=== PATIENT | female | born 1970 | race Caucasian/White ===

== ENCOUNTER 2019-02-03 05:42 | Outpatient (CLI) | payer OTHER ==
[~2019-02-03] VITALS: Ht 167 cm; Wt 77.2 kg
[~2019-02-03 05:42] MED LIST: ESOM20SU PO
[2019-02-03] MEDS ORDERED: FERR-84 PO (10:24)
[2019-02-06] MEDS ORDERED: IBUP-1773 PO (07:52)
[2019-02-06] MEDS ORDERED: HYDR-4226 PO (07:52)
== END 2019-02-03 10:32 | disposition home or self-care (01) ==
LOC: PREOP 05:42
PROVIDERS: ATTEND Obstetrics & Gynecology
DX: Z01.818 Encounter for other preprocedural examination (principal)

== ENCOUNTER 2020-09-04 08:10 | Outpatient (RCR) | payer OTHER ==
[~2020-09-04] VITALS: Ht 167.7 cm; Wt 77.0 kg
[~2020-09-04 08:10] MED LIST changes: +FERR-84 PO; +HYDR-4226 PO; +IBUP-1773 PO; +PANT40TA52 PO; +SUCR1TAB PO
== END 2020-09-05 09:00 | disposition home or self-care (01) ==
LOC: PREOP 08:10
PROVIDERS: ATTEND Surgery
DX: Z01.812 Encounter for preprocedural laboratory examination (principal); K21.9 Gastro-esophageal reflux disease without esophagitis; K27.9 Peptic ulcer, site unspecified, unspecified as acute or chronic, without hemorrhage or perforation; Z20.822 Contact with and (suspected) exposure to COVID-19
CPT/HCPCS: 87635

== ENCOUNTER 2020-09-06 10:47 | Day surgery (SDC) | payer OTHER ==
[2020-09-06] VITALS (13 sets, daily range): BP systolic 89–126; BP diastolic 51–79
[~2020-09-06] VITALS: Ht 167.7 cm; Wt 77.0 kg
[2020-09-06] MEDS ORDERED: fentaNYL INJ 100 MCG/2 ML AMP IVP ONE (11:30)
[2020-09-06] MEDS ORDERED: HURRICAINE EXT TUBE (BENZOCAINE) XX PRN (11:30)
[2020-09-06] MEDS ORDERED: LIDOCAINE JELLY 2% 6 ML SYRINGE MM PRN (11:30)
[2020-09-06] MEDS ORDERED: MIDAZOLAM 5 MG/5 ML (VERSED) VIAL IV ONE (11:30)
[2020-09-06] MEDS ORDERED: NS IV 500 ML 500 ML IV PRN (11:30)
[2020-09-06] MEDS ORDERED: NS IV 500 ML 500 ML ONE (11:41)
[2020-09-06] MEDS ORDERED: LIDOCAINE JELLY 2% 6 ML SYRINGE ONE (12:06)
[2020-09-06] MEDS ORDERED: HURRICAINE EXT TUBE (BENZOCAINE) ONE (12:06)
[2020-09-06] MEDS ORDERED: fentaNYL INJ 100 MCG/2 ML AMP ONE ×2 (12:06→12:32)
[2020-09-06] MEDS ORDERED: MIDAZOLAM 5 MG/5 ML (VERSED) VIAL ONE ×2 (12:06→12:32)
--- NOTE | 2020-09-06 12:17 | Conscious Sedation/ASA ---
Conscious Sedation Pre-Proced Time 11:30 ASA Score 2 For ASA 3 and 4: Consider anesthesia and medical clearance. Also, for patients with a history of failed moderate sedation consider anesthesia. Airway Lungs Heart ASA score ASA 1: a normal healthy patient ASA 2: a patient with a mild systemic disease (mid diabetes, controlled hypertension, obesity ASA 3: a patient with a severe systemic disease that limits activity (angina, COPD, prior Myocardial infarction) ASA 4: a patient with an incapacitating disease that is a constant threat to life (CHF, renal failure) ASA 5: a moribund patient not expected to survive 24 hrs. (ruptured aneurysm) ASA 6: a declared brain- patient whose organs are being harvested. For emergent operations, add the letter E after the classification Mallampati Classification Grade 2 Sedation Plan Analgesia, Amnesia, Plan communicated to team members, Discussed options with patient/fam, Discussed risks with patient/fam The patient is an appropriate candidate to undergo the planned procedure, sedation, and anesthesia. The patient immediately re-assessed prior to indication. JESSIE THORNOTN MD September 06, 2020 12:17
--- NOTE | 2020-09-06 12:18 | Progress Note-Pre Operative ---
Pre-Operative Progress Note H&P Reviewed The H&P was reviewed, patient examined and no changes noted. Date Seen by Provider: September 06, 2020 Time Seen by Provider: 11:30 Date H&P Reviewed: September 06, 2020 Time H&P Reviewed: 11:30 Pre-Operative Diagnosis: GERD, dysphagia JESSIE THORNTON MD September 06, 2020 12:18
--- NOTE | 2020-09-06 12:20 | Discharge Inst-Surgical ---
D/C Lap Instructions-NORBERTO Follow Up Appt in 2 weeks Activity as tolerated High Fiber Diet 25g or more per day Avoid Alcohol, Caffeine, Spicy [place] and Acid foods. Drink 64 fluid oz or more of fluids per day. Symptoms to Report: Fever over 101 degree F, Nausea/Vomiting If any problems/questions: Contact your physician or go to Emergency Room JESSIE THORNTON MD September 06, 2020 12:20
[2020-09-06] MEDS ORDERED: HYDROcodone/APAP 5 MG/325 MG (LORTAB) TAB PO PRN (12:30)
[2020-09-06] MEDS ORDERED: morphine INJ 10 MG/ML 1ML (SYR OR VIAL) IVP PRN ×2 (12:30)
[2020-09-06] MEDS ORDERED: ONDANSETRON 4 MG/2 ML (SDV) Z0FRAN IVP PRN (12:30)
[2020-09-06] MEDS ORDERED: ACETAMINOPHEN 325 MG TABLET PO PRN (12:30)
--- NOTE | 2020-09-06 13:17 | Progress Note-Post Operative ---
Post-Operative Progess Note Surgeon (s)/[employer] Mechanic (s) Surgeon JESSIE THORNTON MD [employer]pillar Mechanic: none Pre-Operative Diagnosis GERD, dysphagia Post-Operative Diagnosis reflux esophagitis, mild distal esophageal stricture, intact HH repair, moderate gastritis. Procedure & Operative Findings Date of Procedure 09/06/20 Procedure Performed/Findings EGD with bx and balloon dilatation. Anesthesia Type cs Estimated Blood Loss Estimated blood loss (mL): minimal Specimens/Packing Specimens Removed ge jxn, antrum JESSIE THORNTON MD September 06, 2020 13:17
--- NOTE | 2020-09-06 17:58 | OPERATIVE REPORT ---
DATE OF SERVICE: 09/06/2020 ATTENDING PRIMARY CARE PHYSICIAN: Rubens Marlow MD. PREOPERATIVE DIAGNOSES: Peptic ulcer disease, H. pylori gastritis, and dysphagia. POSTOPERATIVE DIAGNOSES: Reflux esophagitis stage II, mild distal esophageal stricture, intact hiatal hernia repair and fundoplication. Moderate gastritis. No ulcerations. PROCEDURES PERFORMED: EGD with biopsy and balloon dilatation. SURGEON: Jessie Thornton MD. ANESTHESIA: Conscious sedation. ESTIMATED BLOOD LOSS: Minimal. FINDINGS: Reflux esophagitis stage II, mild distal esophageal stricture, intact hiatal hernia repair and fundoplication. Moderate gastritis. No ulcerations. DISPOSITION: The patient tolerated the procedure well. INDICATIONS FOR PROCEDURE: The patient is a 50-year-old female, who had a longstanding history of gastroesophageal reflux disease and is also status post hiatal hernia repair and Andrew fundoplication approximately 6 years ago. She states that in the past several months, she has had worsening symptoms with crampy epigastric pain usually after eating meals as well as loss of appetite. She also feels that red sauces do exacerbate the problem. She did have blood work drawn, which was positive for H. pylori antibody. She also does have issues with dysphagia for certain types of foods, which has worsened over time as well. DESCRIPTION OF PROCEDURE: The patient was brought to the endoscopy suite and laid in the left lateral decubitus position. After adequate IV pain and sedative medications and conscious sedation anesthesia, the mouthpiece was applied. The endoscope was placed in the mouth, visualizing the pharynx and hypopharyngeal region. Vocal cords, epiglottis and vallecula identified and appeared to be normal. The endoscope was then gently abated the esophageal opening and esophagus insufflated. The endoscope was then advanced through the first, second and third portions of esophagus. At the level of the GE junction, a reflux esophagitis stage II identified. There was also a mild distal esophageal stricture identified. The endoscope was then advanced in the stomach and endoscope retroflexed visualizing an intact previous hiatal hernia repair as well as a Andrew fundoplication and no recurrence. There was a moderate severity gastritis and inflammation along the pylorus as well; however, no formal ulcerations. A biopsy was taken of the stomach antrum to rule out H. pylori with visualization of good hemostasis. The endoscope was then advanced through the first and second portion of the duodenum, which appeared normal with no distal obstructions or ulcerations. The endoscope was then slowly withdrawn while taking a second look and suctioning residual air with no additional findings. We then proceeded with balloon dilatation of the distal esophageal stricture and balloon was placed in the stomach and pulled back to the area of stricture. We then proceeded to 2, 4 and then eventually 6 atmospheres of pressure or 20 mm in luminal diameter with moderate resistance and left this in place for 60 seconds. The balloon was then desufflated and removed with visualization of good hemostasis as well as no mucosal tears. The endoscope was then slowly withdrawn while taking a second look and suctioning of residual air with no additional findings. The patient tolerated the procedure well. We will recommend the necessary lifestyle and diet accommodation as well as small and more frequent meals, avoidance of eating at night as well as head elevation while lying supine. 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 We will await the biopsy results of the antrum to confirm eradication of H. pylori bacteria as well. Job ID: [id number] DocumentID: [id number] Dictated Date: 09/06/2020 12:56:57 Manager Business Date: 09/06/2020 17:57:39 Dictated By: JESSIE THORNTON MD
== END 2020-09-06 14:00 | disposition home or self-care (01) ==
LOC: ENDO 10:47
PROVIDERS: ATTEND Surgery
DX: K21.00 Gastro-esophageal reflux disease with esophagitis, without bleeding (principal); K22.2 Esophageal obstruction; K29.50 Unspecified chronic gastritis without bleeding; K27.9 Peptic ulcer, site unspecified, unspecified as acute or chronic, without hemorrhage or perforation; K44.9 Diaphragmatic hernia without obstruction or gangrene; Z79.899 Other long term (current) drug therapy; Z98.890 Other specified postprocedural states; Z86.19 Personal history of other infectious and parasitic diseases; Z20.822 Contact with and (suspected) exposure to COVID-19; Z87.891 Personal history of nicotine dependence; Z83.3 Family history of diabetes mellitus; Z82.49 Family history of ischemic heart disease and other diseases of the circulatory system
CPT/HCPCS: 84703; 88305; 88342

== ENCOUNTER 2021-10-06 09:57 | Outpatient (CLI) | payer OTHER | END 2021-10-06 10:15 | LOC: SLEEP 09:57 | PROVIDERS: ATTEND Otolaryngology Otolaryngology/Facial Plastic Surgery | DX: G47.33 Obstructive sleep apnea (adult) (pediatric) (principal); G47.10 Hypersomnia, unspecified | CPT/HCPCS: G0399 ==

== ENCOUNTER 2021-10-27 05:37 | Outpatient (CLI) | payer OTHER ==
[~2021-10-27] VITALS: Ht 167.7 cm; Wt 81.9 kg
== END 2021-10-30 09:41 | disposition home or self-care (01) ==
LOC: PREOP 05:37
PROVIDERS: ATTEND Obstetrics & Gynecology
DX: Z01.818 Encounter for other preprocedural examination (principal)

== ENCOUNTER 2021-11-03 08:22 | Day surgery (SDC) | payer OTHER ==
[~2021-11-03] VITALS: Ht 167.7 cm; Wt 81.9 kg
[2021-11-03] VITALS (12 sets, daily range): BP systolic 11–135; BP diastolic 48–85
[2021-11-03] MEDS ORDERED: LACTATED RINGERS 1,000 ML IV PRN (09:00)
[2021-11-03] MEDS ORDERED: ONDANSETRON 4 MG/2 ML (SDV) Z0FRAN ONE (09:03)
[2021-11-03] MEDS ORDERED: fentaNYL INJ 100 MCG/2 ML AMP ONE (09:03)
[2021-11-03] MEDS ORDERED: LIDOCAINE PF 2% 5 ML (XYLOCAINE) VIAL ONE (09:03)
[2021-11-03] MEDS ORDERED: proPOfol 200 MG/20 ML (DIPRIVAN) VIAL IV ONE (09:03)
[2021-11-03] MEDS ORDERED: MIDAZOLAM 2 MG/2 ML (VERSED) VIAL ONE (09:03)
[2021-11-03] MEDS ORDERED: SEVOFLURANE (ULTANE) 15 ML INHAL SOLN ONE (09:03)
[2021-11-03 09:26] LABS: BASOPHILS # (AUTO) 0.1 10^3/uL (0.0-0.1); BASOPHILS % (AUTO) 1 % (0-10); EOSINOPHILS # (AUTO) 0.1 10^3/uL (0.0-0.3); EOSINOPHILS % (AUTO) 1 % (0-10); HEMATOCRIT 31 % (35-52); HEMOGLOBIN 8.7 g/dL (11.5-16.0); LYMPHOCYTES # (AUTO) 1.5 10^3/uL (1.0-4.0); LYMPHOCYTES % (AUTO) 26 % (12-44); MEAN CORPUSCULAR HEMOGLOBIN 21 pg (25-34); MEAN CORPUSCULAR HGB CONC 28 g/dL (32-36); MEAN CORPUSCULAR VOLUME 75 fL (80-99); MEAN PLATELET VOLUME 9.3 fL (9.0-12.2); MONOCYTES # (AUTO) 0.3 10^3/uL (0.0-1.0); MONOCYTES % (AUTO) 5 % (0-12); NEUTROPHILS # (AUTO) 3.9 10^3/uL (1.8-7.8); NEUTROPHILS % (AUTO) 67 % (42-75); PLATELET COUNT 341 10^3/uL (130-400); WHITE BLOOD COUNT 5.9 10^3/uL (4.3-11.0)
--- NOTE | 2021-11-03 09:44 | Progress Note-Pre Operative ---
Pre-Operative Progress Note H&P Reviewed The H&P was reviewed, patient examined and no changes noted. Date Seen by Provider: Nov 03, 2021 Time Seen by Provider: :30 Date H&P Reviewed: Nov 03, 2021 Time H&P Reviewed: :30 Pre-Operative Diagnosis: QI JARVIS DO Nov 03, 2021 09:44
[2021-11-03] MEDS ORDERED: D5 LR IV SOLUTION 1,000 ML IV SCH (09:45)
[2021-11-03] MEDS ORDERED: ONDANSETRON 4 MG/2 ML (SDV) Z0FRAN IVP PRN ×2 (09:45→10:30)
[2021-11-03] MEDS ORDERED: HYDROcodone/APAP 5 MG/325 MG (LORTAB) TAB PO PRN (09:45)
[2021-11-03] MEDS ORDERED: KETOROLAC 30 MG/ML VIAL IVP ONE ×2 (09:45→10:30)
--- NOTE | 2021-11-03 09:48 | Discharge Inst-Women's Service ---
Discharge Inst-Women's Serv Depart Medication/Instructions New, Converted or Re-Newed RX: Other (OTC Ibuprophen 600 mg q 6 hrs.) Problems Reviewed?: Yes Consults/Follow Up Additional Follow Up: Yes Orders/Referrals RTC in 7-10 weeks Activity Activity: Activity as Tolerated Driving Instructions: No Driving for 1 Week NO SMOKING: NO SMOKING Nothing Inside Vagina: No Douching, No [place], No Tampons Diet Discharge Diet: No Restrictions Symptoms to Report to : Bleeding Excessive, Pain Increased, Fever Over 101 Degrees F, Vaginal Bleeding Increase, Questions/Concerns For Any Problems or Questions: Contact Your Physician QI LUCAS DO Nov 03, 2021 09:48
[2021-11-03] MEDS ORDERED: BUPIVACAINE 0.25% 30 ML (SENSORCAINE) VIAL ONE (09:53)
--- NOTE | 2021-11-03 10:28 | Anesthesia-General Post-Op ---
General Patient Condition Mental Status/LOC: Same as Preop Cardiovascular: Satisfactory Nausea/Vomiting: Absent Respiratory: Satisfactory Pain: Controlled Complications: Absent Post Op Complications Complications None Follow Up Care/Instructions Patient Instructions None needed. Anesthesia/Patient Condition Patient Condition Patient is doing well, no complaints, stable vital signs, no apparent adverse anesthesia problems. No complications reported per nursing. CARLOS KOEHLER CRNA Nov 03, 2021 10:28
[2021-11-03] MEDS ORDERED: HYDROmorphone 2 MG/ML VIAL (DILAUDID) IV ONE (10:30)
[2021-11-03] MEDS ORDERED: morphine INJ 10 MG/ML 1ML (SYR OR VIAL) IVP ONE (10:30)
[2021-11-03] MEDS ORDERED: MEPERIDINE (DEMEROL) INJ 50 MG/ML IVP ONE (10:30)
--- NOTE | 2021-11-03 20:03 | OPERATIVE REPORT ---
DATE OF SERVICE: PREOPERATIVE DIAGNOSIS: A 51-year-old female with abnormal uterine bleeding. POSTOPERATIVE DIAGNOSIS: A 51-year-old female with abnormal uterine bleeding. PROCEDURE: D and C. SURGEON: Qi Lucas DO ANESTHESIA: LMA general. ESTIMATED BLOOD LOSS: Minimal. URINE OUTPUT: 80 mL drained at the start of the procedure. FLUIDS: 800 mL of lactated Ringer's solution. FINDINGS: Grossly normal appearing external female genitalia. SPECIMEN SENT: Endometrial curettings. INDICATIONS FOR PROCEDURE: This 51-year-old female is a patient who had sought care in my office. She required endometrial sampling. We discussed both endometrial biopsy in the office versus D and C. The patient opted to proceed with D and C for the potential of curative measures. Risks of procedure were discussed with the patient in detail including risk of bleeding, infection, risk from anesthesia. After all of her questions were answered, consent was obtained in the preoperative area and the patient was taken to the operating room. OPERATIVE REPORT IN DETAIL: Once in the operating room, general anesthesia was found to be adequate, placed in dorsal lithotomy position, prepped and draped in normal sterile fashion. Timeout was performed. The bladder is drained using straight catheterization. A weighted speculum inserted to the patient's vagina. Right angle retractor was used to visualize the cervix, which was grasped at 12 o'clock position using a long Allis clamp. I then performed paracervical block at 3 and 9 o'clock positions on the cervix. Care was taken to aspirate for injecting, 5 mL of 0.25% Marcaine are injected into each site. I then gently sound the uterine cavity, was found to be 8 cm. I then gently dilated the cervix using Hanks dilators to maximum dilatation approximately 1 cm, at which point I performed a gentle curettage using a medium size endometrial curette. Collect all this tissue as endometrial curettings. Methodically clear all the herron of the endometrium as best as I can and collect all this tissue. After that, there was no active bleeding noted from the cervix. All instruments were removed from the patient's vagina. The patient tolerated the procedure well and sent to recovery area in stable condition. Lap and sponge counts were correct at the end of the procedure. Instrument counts correct as well. Job ID: [id number] DocumentID: [id number] Dictated Date: 11/03/2021 10:21:52 Equipment Service Lead Date: 11/03/2021 20:02:40 Dictated By: QI LUCAS DO
--- NOTE | 2021-11-13 08:19 | History & Physical-Surgical ---
HPO-Surgical History of Present Illness Chief Complaint: AUB Diagnosis/Surgical Indication: AUB Procedure: DILATION AND CURETTAGE Date of Surgery: Nov 03, 2021 Allergies and Home Medications Allergies Coded Allergies: No Known Drug Allergies (Unverified , 02/03/19) Patient Home Medication List Home Medication List Reviewed: Yes No Active Prescriptions or Reported Meds Past Qkerqom-Epilqh-Vddtyu Hx Patient Social History Smoking Status: Former Smoker Former Smoker, Quit: Feb 03, 2017 2nd Hand Smoke Exposure: Yes Recent Hopitalizations: No (HAD BLOOD TRANSFUSION) Seasonal Allergies Seasonal Allergies: Yes (MILD) Surgeries Yes (HERNIA REPAIR, KNEE SCOPE) Tubal Ligation Respiratory No Currently Using CPAP: No Currently Using BIPAP: No Cardiovascular No Neurological No Reproductive System Sexually Transmitted Disease: No HIV/AIDS: No Female Reproductive Disorders: Menstrual Problems, Ovarian Cyst CHANCELLOR History: Tubal Ligation Genitourinary Yes Kidney Stones Gastrointestinal Yes Gastroesophageal Reflux, Chronic Constipation, Chronic Diarrhea Musculoskeletal No Endocrine History of Endocrine Disorders: No HEENT History of HEENT Disorders: Yes (GLASSES) Loss of Vision: Denies Hearing Impairment: Denies Cancer Yes Skin, Melanoma Did You Recieve Any Treatments: Yes Type of Treatment: Surgical Intervention Psychosocial History of Psychiatric Problem: Yes Behavioral Health Disorders: Anxiety, Depression Integumentary History of Skin or Integumenta: No Blood Transfusions History of Blood Disorders: Yes (ANEMIA) Adverse Reaction to a Blood Tr: No (HAS HAD BLOOD WITH NO REACTION) Exam Vital Signs Capillary Refill : General Appearance: Alert, Oriented X3 HEENT: Atraumatic Respiratory: Clear to Auscultation Cardiovascular: Regular Rate Psych/Mental Status: Mental Status NL Assessment/Plan Assessment and Plan P: D and C. Admission Diagnosis AUB 51 yr old female Admission Status: Other (Same Day Surgery) QI LUCAS DO Nov 13, 2021 08:19
== END 2021-11-03 12:25 | disposition home or self-care (01) ==
LOC: SDC 08:22
PROVIDERS: ATTEND Obstetrics & Gynecology
DX: N84.0 Polyp of corpus uteri (principal); Z87.891 Personal history of nicotine dependence
CPT/HCPCS: 36415; 84703; 85025; 86850; 86900; 86901; 87081; 88305

== ENCOUNTER 2022-09-24 06:16 | Outpatient (CLI) | payer OTHER ==
[~2022-09-24] VITALS: Ht 167.7 cm; Wt 86.5 kg
[2022-09-24] MEDS ORDERED: IRON150C10 PO (08:45)
[2022-09-24] MEDS ORDERED: MEDR10TA9 PO (08:45)
== END 2022-09-24 08:54 | disposition home or self-care (01) ==
LOC: PREOP 06:16
PROVIDERS: ATTEND Obstetrics & Gynecology
DX: Z01.818 Encounter for other preprocedural examination (principal)

== ENCOUNTER 2022-09-29 06:49 | Day surgery (SDC) | payer OTHER ==
[~2022-09-29] VITALS: Ht 167.7 cm; Wt 86.5 kg
[2022-09-29] VITALS (10 sets, daily range): BP systolic 95–119; BP diastolic 55–75
[~2022-09-29 06:49] MED LIST changes: +IRON150C10 PO; +MEDR10TA9 PO
--- NOTE | 2022-09-29 07:33 | Discharge Inst-Women's Service ---
Discharge Inst-Women's Serv Depart Medication/Instructions New, Converted or Re-Newed RX: Other (May take OTC NSAIDs prn) Problems Reviewed?: Yes Consults/Follow Up Additional Follow Up: Yes Orders/Referrals Dr. Lucas only in 7-10 days, NO appointment alfredo Toney Activity Activity: Activity as Tolerated Driving Instructions: You May Drive (do not drive today) NO SMOKING: NO SMOKING Nothing Inside Vagina: No Douching, No [place], No Tampons Diet Discharge Diet: No Restrictions Symptoms to Report to : Bleeding Excessive, Pain Increased, Fever Over 101 Degrees F, Vaginal Bleeding Increase, Questions/Concerns For Any Problems or Questions: Contact Your Physician QI LUCAS DO Sep 29, 2022 07:33
[2022-09-29] MEDS ORDERED: BUPIVACAINE 0.25% 30 ML (SENSORCAINE) VIAL ONE (07:41)
[2022-09-29] MEDS ORDERED: D5 LR IV SOLUTION 1,000 ML IV SCH (07:45)
[2022-09-29] MEDS ORDERED: LACTATED RINGERS 1,000 ML IV PRN (07:45)
[2022-09-29] MEDS ORDERED: KETOROLAC 30 MG/ML VIAL IVP ONE (07:45)
[2022-09-29] MEDS ORDERED: ONDANSETRON 4 MG/2 ML (SDV) Z0FRAN IVP PRN ×2 (07:45→08:45)
[2022-09-29] MEDS ORDERED: HYDROcodone/APAP 5 MG/325 MG (LORTAB) TAB PO PRN (07:45)
[2022-09-29] MEDS ORDERED: SEVOFLURANE (ULTANE) 15 ML INHAL SOLN ONE (07:46)
[2022-09-29] MEDS ORDERED: proPOfol 200 MG/20 ML (DIPRIVAN) VIAL IV ONE (07:46)
[2022-09-29] MEDS ORDERED: MIDAZOLAM 2 MG/2 ML (VERSED) VIAL ONE (07:46)
[2022-09-29] MEDS ORDERED: LIDOCAINE PF 2% 5 ML (XYLOCAINE) VIAL ONE (07:46)
[2022-09-29] MEDS ORDERED: fentaNYL INJ 100 MCG/2 ML AMP ONE (07:46)
[2022-09-29] MEDS ORDERED: ONDANSETRON 4 MG/2 ML (SDV) Z0FRAN ONE (07:46)
[2022-09-29 07:49] LABS: BASOPHILS # (AUTO) 0.1 10^3/uL (0.0-0.1); BASOPHILS % (AUTO) 1 % (0-10); EOSINOPHILS # (AUTO) 0.1 10^3/uL (0.0-0.3); EOSINOPHILS % (AUTO) 2 % (0-10); HEMATOCRIT 30 % (35-52); HEMOGLOBIN 9.6 g/dL (11.5-16.0); LYMPHOCYTES # (AUTO) 1.6 10^3/uL (1.0-4.0); LYMPHOCYTES % (AUTO) 25 % (12-44); MEAN CORPUSCULAR HEMOGLOBIN 25 pg (25-34); MEAN CORPUSCULAR HGB CONC 32 g/dL (32-36); MEAN CORPUSCULAR VOLUME 79 fL (80-99); MEAN PLATELET VOLUME 10.3 fL (9.0-12.2); MONOCYTES # (AUTO) 0.3 10^3/uL (0.0-1.0); MONOCYTES % (AUTO) 5 % (0-12); NEUTROPHILS # (AUTO) 4.3 10^3/uL (1.8-7.8); NEUTROPHILS % (AUTO) 66 % (42-75); PLATELET COUNT 322 10^3/uL (130-400); WHITE BLOOD COUNT 6.4 10^3/uL (4.3-11.0)
[2022-09-29] MEDS ORDERED: PHENYLEPHRINE 100 MCG/ML 10 ML (ANESTHESIA) SYR ONE (08:20)
[2022-09-29] MEDS ORDERED: KETOROLAC 30 MG/ML VIAL ONE (08:21)
[2022-09-29] MEDS ORDERED: BUPIVACAINE 0.25% 30 ML (SENSORCAINE) VIAL INJ ONE (08:22)
[2022-09-29] MEDS ORDERED: HYDROmorphone 2 MG/ML VIAL (DILAUDID) IV ONE (08:45)
--- NOTE | 2022-09-29 12:27 | Anesthesia-General Post-Op ---
General Patient Condition Mental Status/LOC: Same as Preop Cardiovascular: Satisfactory Nausea/Vomiting: Absent Respiratory: Satisfactory Pain: Controlled Complications: Absent Post Op Complications Complications None Follow Up Care/Instructions Patient Instructions None needed. Anesthesia/Patient Condition Patient Condition Patient is doing well, no complaints, stable vital signs, no apparent adverse anesthesia problems. No complications reported per nursing. D/C home per [facility] Criteria: Yes REID ALVARADO CRNA Sep 29, 2022 12:27
--- NOTE | 2022-09-29 13:18 | OPERATIVE REPORT ---
DATE OF SERVICE: 09/29/2022 PREOPERATIVE DIAGNOSES: 1. A 52-year-old female with abnormal uterine bleeding. 2. Chronic blood loss anemia. POSTOPERATIVE DIAGNOSES: 1. A 52-year-old female with abnormal uterine bleeding. 2. Chronic blood loss anemia. PROCEDURE: D and C. SURGEON: Jose M Mercedes DO ANESTHESIA: LMA general. ESTIMATED BLOOD LOSS: Minimal. URINE OUTPUT: 80 mL drained at the start of the procedure. FLUIDS: 800 mL of lactated Ringer's solution. FINDINGS: A small to moderate amount of endometrial tissue collected on endometrial curettings. Grossly, normal-appearing cervix, vaginal mucosa and external female genitalia. INDICATIONS FOR PROCEDURE: This 52-year-old female was a patient who had sought care in my office nearly a year ago for similar episode of heavy bleeding. This was resolved after D and C was performed. However, she began bleeding heavily again approximately 2 months ago to the point where she went to emergency department last week and was found to be significantly anemic and ended up getting a blood transfusion, followed by some iron transfusions as well. I discussed with the patient need for repeat imaging, which was done in at her ER visit, which showed persistent fibroids. I also discussed with the patient need for endometrial sampling, has been greater than 6 months since her previous sample. We discussed proceeding with Marisabel and Sue with the plan in place to definitively address this eventually using a hysterectomy. She was agreeable to proceed with D and C as a diagnostic procedure. Risks of procedure discussed with the patient in detail and after all her questions were answered, consent was obtained, the patient was taken to the operating room. OPERATIVE DESCRIPTION IN DETAIL: Once in the operating room, anesthesia was found to be adequate, was placed in dorsal lithotomy position, prepped and draped in normal sterile fashion. A timeout was performed. A weighted speculum inserted to the patient's vagina. Ring retractor was used to visualize cervix, which was grasped at 12 o'clock position using a long Allis clamp. I then performed a paracervical block at 3 and 9 o'clock positions on the cervix. Care was taken to aspirate for injecting 5 mL of 0.25% Marcaine injected at each site. I then gently sound the uterine cavity and that was found to be 8 cm and gently dilate the cervix using Hanks dilators to maximum dilatation of 1 cm, at which point I performed a gentle curettage using a small endometrial curette at of the endometrial cavity. Small to moderate amount of tissue was collected in the process of doing this, this was sent as endometrial curettings after which there was no active bleeding noted from the cervix. All instruments were removed from the patient's vagina. The patient tolerated the procedure well and was taken to recovery area in stable condition. Lap and sponge counts were correct at the end of the procedure. Instrument counts correct as well. Job ID: [id number] DocumentID: [id number] Dictated Date: 09/29/2022 08:43:41 Gift Consultant Date: 09/29/2022 13:16:00 Dictated By: DO GRAYSON BECKFORD
== END 2022-09-29 10:10 | disposition home or self-care (01) ==
LOC: SDC 06:49
PROVIDERS: ATTEND Obstetrics & Gynecology
DX: N85.8 Other specified noninflammatory disorders of uterus (principal); D50.0 Iron deficiency anemia secondary to blood loss (chronic); E66.9 Obesity, unspecified; Z68.31 Body mass index [BMI] 31.0-31.9, adult
CPT/HCPCS: 36415; 84703; 85025; 86850; 86900; 86901; 87081; 88305

== ENCOUNTER 2022-10-21 05:48 | Outpatient (CLI) | payer OTHER ==
[~2022-10-21] VITALS: Ht 167.7 cm; Wt 86.4 kg
== END 2022-10-22 16:20 | disposition home or self-care (01) ==
LOC: PREOP 05:48
PROVIDERS: ATTEND Obstetrics & Gynecology
DX: Z01.818 Encounter for other preprocedural examination (principal)

== ENCOUNTER 2022-10-27 07:31 | Day surgery (SDC) | payer OTHER ==
[2022-10-27] VITALS (10 sets, daily range): BP systolic 100–124; BP diastolic 65–76
[~2022-10-27] VITALS: Ht 167.7 cm; Wt 86.4 kg
[2022-10-27] MEDS ORDERED: metroNIDAZOLE 500MG/100ML IVPB 100 ML IV ONE (07:45)
[2022-10-27] MEDS ORDERED: ceFAZolin INJECTION 2,000 MG in NS (IVPB) 50 ML IV ONE (07:45)
[2022-10-27] MEDS ORDERED: LACTATED RINGERS 1,000 ML IV PRN (07:45)
--- NOTE | 2022-10-27 08:32 | Progress Note-Pre Operative ---
Pre-Operative Progress Note Date of Available H&P: Oct 27, 2022 Date H&P Reviewed: Oct 27, 2022 Time H&P Reviewed: 08:20 History & Physical: H&P Reviewed, Patient Examed, No changes noted Pre-Operative Diagnosis: AUB, Chronic blood loss anemia QI LUCAS DO Oct 27, 2022 08:32
--- NOTE | 2022-10-27 08:35 | Discharge Inst-Women's Service ---
Discharge Inst-Women's Serv Depart Medication/Instructions New, Converted or Re-Newed RX: Transmitted to Pharmacy Problems Reviewed?: Yes Consults/Follow Up Additional Follow Up: Yes Orders/Referrals Dr. Mercedes in 7-10 days and in 8 weeks Activity Activity: Activity as Tolerated Driving Instructions: No Driving for 1 Week NO SMOKING: NO SMOKING Nothing Inside Vagina: No Douching, No [place], No Tampons Diet Discharge Diet: No Restrictions Symptoms to Report to : Bleeding Excessive, Pain Increased, Fever Over 101 Degrees F, Vaginal Bleeding Increase, Questions/Concerns For Any Problems or Questions: Contact Your Physician Skin/Wound Care Infection Signs and Symptoms: Increased Redness, Foul Odor of Wound, Increased Drainage, Skin Itchy or Has a Rash, Increased Swelling, Temperature Above 101 F Operative Area Clean and Dry: Keep Incision Clean/Dry Stitches/Charo/Dermabond: Dermabond, Care of Stitches Bathing Instructions: QI Diaz DO Oct 27, 2022 08:35
[2022-10-27] MEDS ORDERED: SIME80TA16 PO (08:36)
[2022-10-27] MEDS ORDERED: IBUP-844 PO (08:36)
[2022-10-27] MEDS ORDERED: HYDR-34 PO (08:36)
[2022-10-27] MEDS ORDERED: DOCU100C37 PO (08:36)
[2022-10-27] MEDS ORDERED: BUPIVACAINE 0.25% 30 ML (SENSORCAINE) VIAL ONE (08:42)
[2022-10-27] MEDS ORDERED: LIDOCAINE PF 2% 5 ML (XYLOCAINE) VIAL ONE (08:45)
[2022-10-27] MEDS ORDERED: MIDAZOLAM 2 MG/2 ML (VERSED) VIAL ONE (08:45)
[2022-10-27] MEDS ORDERED: LACTATED RINGERS 1,000 ML IV SCH (08:45)
[2022-10-27] MEDS ORDERED: ONDANSETRON 4 MG/2 ML (SDV) Z0FRAN IV PRN (08:45)
[2022-10-27] MEDS ORDERED: BENZOCAINE LOZENGES 1 EACH LOZENGE MM PRN (08:45)
[2022-10-27] MEDS ORDERED: HYDROmorphone 2 MG/ML VIAL (DILAUDID) IV PRN (08:45)
[2022-10-27] MEDS ORDERED: fentaNYL INJ 100 MCG/2 ML AMP ONE (08:45)
[2022-10-27] MEDS ORDERED: SIMETHICONE 80 MG (MYLICON) CHEW PO PRN (08:45)
[2022-10-27] MEDS ORDERED: HYDROcodone/APAP 7.5 MG/325 MG (LORTAB, LORCET PLUS) TABLET PO PRN (08:45)
[2022-10-27] MEDS ORDERED: DOCUSATE SODIUM 100 MG (COLACE) CAP PO PRN (08:45)
[2022-10-27] MEDS ORDERED: ONDANSETRON 4 MG/2 ML (SDV) Z0FRAN ONE (08:45)
[2022-10-27] MEDS ORDERED: IBUPROFEN 600 MG (MOTRIN) TAB PO PRN (08:45)
[2022-10-27] MEDS ORDERED: ZOLPIDEM 5 MG (AMBIEN) TAB PO PRN (08:45)
[2022-10-27] MEDS ORDERED: proPOfol 200 MG/20 ML (DIPRIVAN) VIAL IV ONE (08:45)
[2022-10-27] MEDS ORDERED: SEVOFLURANE (ULTANE) 15 ML INHAL SOLN ONE ×2 (08:45→10:24)
[2022-10-27] MEDS ORDERED: ANTACID SUSP 30 ML UDC (MYLANTA) PO PRN (08:45)
[2022-10-27 08:49] LABS: BASOPHILS # (AUTO) 0.1 10^3/uL (0.0-0.1); BASOPHILS % (AUTO) 1 % (0-10); EOSINOPHILS # (AUTO) 0.1 10^3/uL (0.0-0.3); EOSINOPHILS % (AUTO) 1 % (0-10); HEMATOCRIT 32 % (35-52); HEMOGLOBIN 9.5 g/dL (11.5-16.0); LYMPHOCYTES # (AUTO) 1.2 10^3/uL (1.0-4.0); LYMPHOCYTES % (AUTO) 17 % (12-44); MEAN CORPUSCULAR HEMOGLOBIN 24 pg (25-34); MEAN CORPUSCULAR HGB CONC 30 g/dL (32-36); MEAN CORPUSCULAR VOLUME 81 fL (80-99); MEAN PLATELET VOLUME 10.1 fL (9.0-12.2); MONOCYTES # (AUTO) 0.4 10^3/uL (0.0-1.0); MONOCYTES % (AUTO) 6 % (0-12); NEUTROPHILS # (AUTO) 5.4 10^3/uL (1.8-7.8); NEUTROPHILS % (AUTO) 75 % (42-75); PLATELET COUNT 300 10^3/uL (130-400); WHITE BLOOD COUNT 7.2 10^3/uL (4.3-11.0)
[2022-10-27] MEDS ORDERED: ROCURONIUM 50 MG/5 ML (ZEMURON) VIAL IV ONE (09:26)
[2022-10-27] MEDS ORDERED: HYDROmorphone 2 MG/ML VIAL (DILAUDID) ONE ×2 (10:03→10:49)
[2022-10-27] MEDS ORDERED: KETOROLAC 30 MG/ML VIAL ONE (10:25)
[2022-10-27] MEDS: KETOROLAC 30 MG/ML VIAL IVP PRN ×2 (10:30→16:23)
[2022-10-27] MEDS ORDERED: HYDROmorphone 2 MG/ML VIAL (DILAUDID) IV ONE (11:00)
[2022-10-27] MEDS ORDERED: ONDANSETRON 4 MG/2 ML (SDV) Z0FRAN IVP PRN (11:00)
--- NOTE | 2022-10-27 17:21 | OPERATIVE REPORT ---
DATE OF SERVICE: 10/27/2022 PREOPERATIVE DIAGNOSES: 1. A 52-year-old female with abnormal uterine bleeding. 2. Chronic blood loss anemia. 3. Fibroid uterus. POSTOPERATIVE DIAGNOSES: 1. A 52-year-old female with abnormal uterine bleeding. 2. Chronic blood loss anemia. 3. Fibroid uterus. PROCEDURE: Robotic-assisted total laparoscopic hysterectomy with bilateral salpingo-oophorectomy weight greater than 230 grams. SURGEON: Jose M Lucas DO. ANESTHESIA: General endotracheal. ESTIMATED BLOOD LOSS: 50 mL URINE OUTPUT: 200 mL clear at the end of procedure. FLUIDS: 1000 mL lactated Ringer's solution. FINDINGS: A bulky hyperemic normal-appearing uterus, bilateral normal-appearing ovaries and fallopian tubes. SPECIMEN SENT: Uterus, bilateral fallopian tubes and ovaries. INDICATIONS FOR PROCEDURE: This 52-year-old female patient who had sought care in my office approximately 1 year ago for heavy bleeding. She underwent a D ear and C, which showed negative pathology with exception of finding of fibroid tissue submucosally. She was doing very well throughout the year after her D and C; however, began having heavy bleeding again and ended up needing blood transfusion and iron infusions earlier this year. Due to the amount of bleeding she has having from her periods, due to ongoing risk of blood loss and the patient wanting to avoid exogenous hormones and alternative measures, she wished to proceed with hysterectomy. Risks of the procedure were discussed with the patient in detail and after all of her questions were answered, she was agreeable to proceed. Consent was obtained. The patient was taken to the operating room. OPERATIVE DESCRIPTION IN DETAIL Once in the operating room, anesthesia was found to be adequate. She was placed in dorsal lithotomy position, prepped and draped in normal sterile fashion. A timeout was performed. A Sheriff catheter was placed using sterile technique. A weighted speculum inserted to the patient's vagina. Right angle retractor was utilized. Cervix was grasped at 12 o'clock position using a long Allis clamp. An 0 Vicryl suture was then placed through the anterior lip of the cervix, which is used as my retraction on the cervix from that point forward. I then gently sounded uterine cavity and that was found to be 8 cm. I selected an 8 cm DINO uterine manipulator tip and a 3.5 cm colpotomy ring. The manipulator tip was advanced around advanced into the uterus with the balloons deployed and the colpotomy ring is advanced around the vaginal fornix. I then removed all the instruments from the patient's vagina, performed change of gloves, I turned my attention to the abdomen where subcostally at the midclavicular line on the left side, I introduced the Veress needle through the skin until intraperitoneal placement was confirmed using saline drop test. An opening pressure of 4 mmHg was noted. I used CO2 gas to insufflate to max pressure of 15 mmHg, at which point I made an 8 mm infraumbilical trocar incision with a knife and direct an 8 mm blunt laparoscopic da Jigar camera trocar through the incision to enter. Placement was confirmed using da Jigar laparoscope. There was no evidence of damage from entry site. A brief scan of the upper abdominal anatomy appears to be grossly normal. There is no evidence of damage from the Veress needle entry site and the Veress was removed at that point. A brief scan of the upper abdominal anatomy otherwise appeared to be grossly normal. I then had the patient placed in steep Trendelenburg, once I was able to visualize all my pelvic anatomy as defined in my findings above, I placed 2 lateral trocars. At this point, these were both 8 mm trocars approximately 10 cm lateral to my infraumbilical trocar. Once both of these trocars were in place, I brought in the da Jigar robot and docked in appropriate fashion, placing the SynchroSeal device in the left and monopolar aneesh in the right hand performed the following dissection bilaterally, starting at the infundibulopelvic ligament, I sealed and transected using the SynchroSeal device, I then grasped the round ligament, which I sealed and transected using the SynchroSeal device. I then grasped the entire broad ligament, which I sealed and transected using a SynchroSeal device. I did this down to the level of the lower uterine segment, at which point I the anterior and posterior leaflets of the broad ligament. The anterior dissection was taken around the anterior vaginal fornix. The posterior leaflet was taken to the posterior vaginal fornix. This allows me to skeletonize the uterine vessels laterally, which I sealed and transected using the SynchroSeal device. I then created a colpotomy at 12 o'clock position using monopolar aneesh and take this circumferentially around the vaginal fornix amputating the vagina away from the cervix. The entire specimen was then removed through the vagina. I had to be bivalved down the midline, but that allowed and facilitate for delivery through the vagina. I then closed the vaginal cuff using 2-0 V-Loc in running fashion, after which there is no active bleeding noted from any of my dissection planes. I then undocked da Jigar robot and proceeded with remainder of case laparoscopically, copiously irrigated the pelvis using normal saline. Once again, there was no active bleeding from my dissection planes. I covered my planes of dissection using Surgiflo hemostatic agent. I removed the lateral trocars under direct visualization, laparoscope. The infraumbilical trocars left in place to release the remainder of insufflation and introduced 10 mL of 0.25% Marcaine in the peritoneal cavity for postoperative pain management. I then removed this trocar as well. The skin reapproximated using 4-0 Monocryl and interrupted subcuticular stitches. Dermabond was applied. Incision bandage was placed over the incisions as well. There is a small laceration of the right vaginal sidewall that is repaired using 3-0 Vicryl suture in interrupted fashion, after which a Sheriff catheter was left in place. Two grams of Ancef and 500 mg of Flagyl were given preoperatively for infection prophylaxis. Lap and sponge count was correct at the end of the procedure. Instrument counts correct as well. Job ID: [id number] DocumentID: [id number] Dictated Date: 10/27/2022 11:04:28 Lead Project Manager Date: 10/27/2022 17:19:00 Dictated By: JOSE M LUCAS DO
--- NOTE | 2022-10-28 07:30 | Anesthesia-General Post-Op ---
General Patient Condition Mental Status/LOC: Same as Preop Cardiovascular: Satisfactory Nausea/Vomiting: Absent Respiratory: Satisfactory Pain: Controlled Complications: Absent Post Op Complications Complications None Follow Up Care/Instructions Patient Instructions None needed. Anesthesia/Patient Condition Patient Condition Patient is doing well, no complaints, stable vital signs, no apparent adverse anesthesia problems. No complications reported per nursing. D/C home per [facility] Criteria: Yes REID ALVARADO CRNA Oct 28, 2022 07:30
== END 2022-10-27 18:10 | disposition home or self-care (01) ==
LOC: SDC 07:31 → WS 11:40 → SDC 18:10
PROVIDERS: ATTEND Obstetrics & Gynecology
DX: D25.1 Intramural leiomyoma of uterus (principal); N93.9 Abnormal uterine and vaginal bleeding, unspecified; D50.0 Iron deficiency anemia secondary to blood loss (chronic); E66.9 Obesity, unspecified; N92.0 Excessive and frequent menstruation with regular cycle; N80.03 Adenomyosis of the uterus; N83.202 Unspecified ovarian cyst, left side; N83.201 Unspecified ovarian cyst, right side; Z68.30 Body mass index [BMI] 30.0-30.9, adult; Z87.891 Personal history of nicotine dependence; Z93.9 Artificial opening status, unspecified
CPT/HCPCS: 36415; 84703; 85025; 86850; 86900; 86901; 87081; 88307; 94664